=== PATIENT | male | born 1955 | race Caucasian/White ===

== ENCOUNTER 2017-11-09 09:26 | Outpatient (CLI) | payer MEDICARE, MEDICAID ==
[~2017-11-09 09:26] MED LIST: PHEN100C4 PO
== END 2017-11-09 23:59 | disposition home or self-care (01) ==
LOC: RAD 09:26
PROVIDERS: ATTEND Physician Assistant
DX: G40.909 Epilepsy, unspecified, not intractable, without status epilepticus (principal); F17.210 Nicotine dependence, cigarettes, uncomplicated; G93.89 Other specified disorders of brain; R90.82 White matter disease, unspecified; M79.89 Other specified soft tissue disorders; Z79.899 Other long term (current) drug therapy
CPT/HCPCS: 70551; 95816